=== PATIENT | male | born 1995 | race Caucasian/White ===

== ENCOUNTER 2019-04-21 22:05 | Emergency (ER) | payer OTHER ==
[~2019-04-21 22:05] MED LIST: Iopamidol 370 76% 100 ML VIAL ONE
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
[2019-04-21 22:53] LABS: ALT (SGPT) 69 U/L (8-55); AST (SGOT) 50 U/L (5-34); Albumin 4.6 g/dL (3.5-5.0); Alcohol Less than 10 mg/dL (Less than 10); Alkaline Phosphatase 72 U/L (40-150); Anion Gap 16 mmol/L (10-20); BUN (Urea Nitrogen) 13 mg/dL (8.9-20.6); Bilirubin, Total 0.6 mg/dL (0.2-1.2); Calc. Creatinine Clearance 0 mL/min (70-130); Calcium 9.6 mg/dL (7.8-10.44); Carbon Dioxide 26 mmol/L (22-29); Chloride 102 mmol/L (98-107); Estimated GFR-MDRD 85; Globulin 3.1 g/dL (2.4-3.5); Glucose 99 mg/dL (70-105); Potassium 3.5 mmol/L (3.5-5.1); Protein, Total 7.7 g/dL (6.0-8.3); Sodium 140 mmol/L (136-145)
[2019-04-21 22:57] LABS: #Basophils 0.1 thou/uL (0.0-0.2); #Eosinphils 0.1 thou/uL (0.0-0.7); #Lymphocytes 2.4 thou/uL (1.20-3.40); #Monocytes 1.4 thou/uL (0.11-0.59); #Neutrophils 15.6 thou/uL (1.40-6.50); %Basophils 0.3 % (0.0-1.0); %Eosinophils 0.8 % (0.0-10.0); %Lymphocytes 12.2 % (21.0-51.0); %Neutrophils 79.7 % (42.0-75.0); Hemoglobin 16.9 g/dL (14.0-18.0); Mean Corpuscular HGB CONC 33.7 g/dL (32.0-36.0); Mean Corpuscular Hemoglobin 32.1 pg (27.0-31.0); Mean Corpuscular Volume 95.2 fL (78.0-98.0); Mean Platelet Volume 8.4 fL (7.4-10.4); Platelet Count 166 thou/uL (130-400); Platelet Morphology Comment Appears Adequate; RBC Distribution Width 11.5 % (11.5-14.5); Red Blood Cell (RBC) Count 5.28 mill/uL (4.70-6.10); White Blood Cell (WBC) Count 19.5 thou/uL (4.8-10.8)
[2019-04-21] MEDS ORDERED: Morphine 4 MG/ML VIAL ONE ×2 (23:06→23:36)
[2019-04-21] MEDS ORDERED: Ondansetron PF 4 MG/2 ML Vial ONE ×2 (23:07→23:50)
[2019-04-21] MEDS ORDERED: Promethazine HCl 25 MG/ML VIAL ONE (23:37)
[2019-04-22] MEDS ORDERED: Aspirin 325 MG TAB ONE (00:12)
== END 2019-04-22 01:19 | disposition home or self-care (01) ==
LOC: ERS 22:05
DX: S01.01XA Laceration without foreign body of scalp, initial encounter (principal); F17.220 Nicotine dependence, chewing tobacco, uncomplicated; V89.2XXA Person injured in unspecified motor-vehicle accident, traffic, initial encounter
CPT/HCPCS: 12006; 70450; 71260; 72125; 74177; 80053; 80307; 85025; 86850; 86900; 86901; 96374; 96375; 96376; G0390; J2270; J2405; J2550; Q9967